=== PATIENT | female | born 1970 | race Caucasian/White ===

== ENCOUNTER 2017-01-10 10:39 | Emergency (ER) | payer OTHER ==
[2017-01-10 10:48] VITALS: BP 109/77; PULSE 88; RESP 16; TEMP 98.6; O2SAT 100
--- NOTE | 2017-01-10 10:56 | ED PDOC ---
Arrival/HPI - General Chief Complaint: Trauma Time Seen by Provider: 01/10/17 10:40 Historian: Patient - History of Present Illness Narrative History of Present Illness (Text): 01/10/17 10:54 46F w/no sig PMH evaluated for facial and R foot trauma. Pt reports that shower door fell on her Tuesday with laceration to bridge of nose and lateral aspect of R foot. Pt declined coming to ED at that time. Had some difficulty breathing, which has resolved with ice application to nose. Does not remember last tetanus shot. Denies N/V/F/C, SOB, CP, ALDANA, injury to other parts of her body or other complaints. PMH: Denies PSH: x 1 All: NKDA SH: Occasional ETOH use, denies tobacco or illicit drug use PMD: [place] Time/Duration: < week Symptom Onset: Sudden Symptom Course: Improving Quality: Aching Severity Level: Mild Context: Home Past Medical History - Provider Review Nursing Documentation Reviewed: Yes - Infectious Disease Hx of Infectious Diseases: None - Reproductive Menopause: No - Past Medical History Past Medical History: No Previous - HEENT Other/Comment: sinus - Psychiatric Hx Substance Use: No - Surgical History Hx Section: Yes - Anesthesia Hx Anesthesia: Yes Hx Anesthesia Reactions: No Hx Malignant Hyperthermia: No Family/Social History - Physician Review Nursing Documentation Reviewed: Yes Family/Social History: No Known Family HX Smoking Status: Never Smoked Hx Alcohol Use: Yes Frequency of alcohol use: Socially Hx Substance Use: No Allergies/Home Meds Allergies/Adverse Reactions: Allergies No Known Allergies Allergy (Verified 04/10/15 11:35) Home Medications: Home Meds Medication Instructions Recorded Confirmed No Known Home Med 04/10/15 01/10/17 Review of Systems - Physician Review All systems were reviewed & negative as marked: Yes - Review of Systems Constitutional: Normal Eyes: Normal. absent: Vision Changes ENT: Normal. absent: Sore Throat, Epistaxis Respiratory: Normal. absent: SOB Cardiovascular: Normal. absent: Chest Pain Gastrointestinal: Normal. absent: Abdominal Pain, Nausea, Vomiting Genitourinary Female: Normal. absent: Dysuria, Frequency Musculoskeletal: Normal. absent: Neck Pain Skin: Laceration (nasal bridge, lateral right foot). absent: Normal Neurological: Normal. absent: Headache Physical Exam Vital Signs Reviewed: Yes Vital Signs Temp Pulse Resp BP Pulse Ox 01/10/17 10:40 98.6 F 88 16 109/77 100 Temperature: Afebrile Blood Pressure: Normal Pulse: Regular Respiratory Rate: Normal Appearance: Positive for: Non-Toxic, Comfortable Pain Distress: None Mental Status: Positive for: Alert and Oriented X 3 - Systems Exam Head: Present: Normocephalic, Tenderness (nasal bridge (minimal)). No: Atraumatic (nasal laceration) Extroacular Muscles: Present: EOMI Conjunctiva: Present: Normal Mouth: Present: Moist Mucous Membranes Nose (External): Present: Laceration (nasal bridge). No: Atraumatic Neck: Present: Normal Range of Motion Respiratory/Chest: Present: Clear to Auscultation, Good Air Exchange. No: Respiratory Distress, Accessory Muscle Use Cardiovascular: Present: Regular Rate and Rhythm, Normal S1, S2. No: Murmurs Abdomen: Present: Normal Bowel Sounds. No: Tenderness, Distention, Peritoneal Signs Upper Extremity: Present: Normal Inspection. No: Cyanosis, Edema Lower Extremity: Present: Normal Inspection, Other. No: Edema Neurological: Present: GCS=15, CN II-XII Intact, Speech Normal Skin: Present: Warm, Dry, Normal Color, Laceration (healing laceration of nasal bridge, healed laceration of lateral aspect of Right posterior foot). No: Rashes Psychiatric: Present: Alert, Oriented x 3, Normal Insight, Normal Concentration Medical Decision Making ED Course and Treatment: 01/10/17 10:59 Pt seen/evaluated, tetanus shot order. Will order facial imaging for evaluation of possible nasal fracture. - RAD Interpretation Radiology Orders: 01/10/17 11:02 ORBITS/ FACIALS W/O CONTRAST [CT] Stat 01/10/17 11:15 FOOT RIGHT 3 VIEWS ROUTINE [RAD] Stat - Medication Orders Current Medication Orders: Discontinued Medications Tetanus/Reduced Diphtheria/Acell Pertussis (Boostrix Vaccine Inj) 0.5 ml IM .ONCE ONE Stop: 01/10/17 10:58 Last Admin: 01/10/17 11:03 Dose: 0.5 ml [facility] Immunization Data Document 01/10/17 11:03 [place] (Rec: 01/10/17 11:06 [place] [id number]) Immunization Data Vaccine Lot Number [id number] Vaccine Expiration Date 01/08/19 Site Given Left Deltoid Route Intramuscular Immunization Units ml Disposition/Present on Arrival - Present on Arrival Any Indicators Present on Arrival: No History of DVT/PE: No History of Uncontrolled Diabetes: No Urinary Catheter: No History of Decub. Ulcer: No History Surgical Site Infection Following: None - Disposition Have Diagnosis and Disposition been Completed?: Yes Diagnosis: Nasal laceration, Laceration of foot not toes Disposition: HOME/ ROUTINE Disposition Time: 13:01 Patient Plan: Discharge Condition: STABLE Discharge Instructions (ExitCare): Laceration (ED) Forms: [employer] ([place]ian)
[2017-01-10] MEDS ORDERED: TDAP Vaccine 0.5 mL Syr IM ONE (10:57)
--- NOTE | 2017-01-10 12:45 | CT ---
PROCEDURE: CT ORBITS WITHOUT CONTRAST. HISTORY: trauma COMPARISON: None available. TECHNIQUE: Axial CT images of the orbits were obtained. Coronal and sagittal reformats were generated. Radiation dose: Total exam DLP = 731 mGy-cm. This CT exam was performed using one or more of the following dose reduction techniques: Automated exposure control, adjustment of the mA and/or kV according to patient size, and/or use of iterative reconstruction technique. FINDINGS: RIGHT ORBIT: RIGHT BONY ORBIT: Normal. RIGHT INTRAORBITAL STRUCTURES: Globe: Normal. Extraocular muscles: Normal. Post septal space: Normal. Optic Nerve: Normal. Lacrimal Apparatus: Normal. RIGHT PRESEPTAL SOFT TISSUES: Normal. LEFT ORBIT: LEFT BONY ORBIT: Normal. LEFT INTRAORBITAL STRUCTURES: Globe: Normal. Extraocular muscles: Normal. Post septal space: Normal Optic Nerve: Normal. . Lacrimal Apparatus: Normal. LEFT PRESEPTAL SOFT TISSUES: Normal. OTHER: There is mucosal thickening throughout the paranasal sinuses. IMPRESSION: No acute findings
--- NOTE | 2017-01-10 12:51 | RAD ---
PROCEDURE: Right Foot Radiographs. HISTORY: hit by shower door medial aspect COMPARISON: None. FINDINGS: BONES: Normal. No fracture. JOINTS: Normal. SOFT TISSUES: Normal. OTHER FINDINGS: None. IMPRESSION: Normal right foot radiographs.
== END 2017-01-10 13:10 | disposition home or self-care (01) ==
LOC: ED 10:39
DX: S01.21XA Laceration without foreign body of nose, initial encounter (principal); S91.311A Laceration without foreign body, right foot, initial encounter; W20.8XXA Other cause of strike by thrown, projected or falling object, initial encounter; Z23 Encounter for immunization

== ENCOUNTER 2018-04-02 11:37 | Emergency (ER) | payer OTHER ==
[2018-04-02 11:45] VITALS: RESP 18
[2018-04-02] MEDS ORDERED: Albuterol 0.083% Inhal Sol (2.5 mg/3 mL) UD IH STA (12:21)
--- NOTE | 2018-04-02 12:54 | ED PDOC ---
Arrival/HPI - General Historian: Patient - History of Present Illness Narrative History of Present Illness (Text): 04/02/18 14:03 47-year-old female presents today with cough and nasal congestion that's been intermittent for the past 2 months. Patient states she completed a course of zithromax and has been having recurrent cough. pt denies chest pain or shortness of breath. pt c/o nasal congestion, occasional sore throat. pt denies fever/chills. no abdominal pain. pt states she has been on spiriva without improvement. pt denies headaches, dizziness, weakness. no other complaints. <Urvashi Thomas - Last Filed: 04/02/18 20:18> <Konstantin Best - Last Filed: 04/03/18 12:41> - General Chief Complaint: Cough, Cold, Congestion Time Seen by Provider: 04/02/18 11:45 Past Medical History - Provider Review Nursing Documentation Reviewed: Yes - Travel History Have you recently traveled outside [place] w/in the past 3 mons?: No - Infectious Disease Hx of Infectious Diseases: None - Past Medical History Past Medical History: No Previous - HEENT Other/Comment: sinus - Psychiatric Hx Substance Use: No - Surgical History Hx Section: Yes - Anesthesia Hx Anesthesia: Yes Hx Anesthesia Reactions: No Hx Malignant Hyperthermia: No <Urvashi Thomas - Last Filed: 04/02/18 20:18> Family/Social History - Physician Review Nursing Documentation Reviewed: Yes Family/Social History: Unknown Family HX Smoking Status: Never Smoked Hx Alcohol Use: Yes Hx Substance Use: No <Urvashi Thomas - Last Filed: 04/02/18 20:18> Allergies/Home Meds <Urvashi Thomas - Last Filed: 04/02/18 20:18> <Konstantin Best - Last Filed: 04/03/18 12:41> Allergies/Adverse Reactions: Allergies No Known Allergies Allergy (Verified 04/02/18 11:46) Review of Systems - Review of Systems Constitutional: absent: Fatigue, Fevers ENT: Sore Throat, Sinus Congestion Respiratory: Cough. absent: SOB Cardiovascular: absent: Chest Pain, Palpitations Gastrointestinal: absent: Abdominal Pain, Nausea, Vomiting Genitourinary Female: absent: Dysuria Musculoskeletal: absent: Arthralgias Skin: absent: Rash, Pruritis Neurological: absent: Headache, Dizziness Psychiatric: absent: Anxiety, Depression <Urvashi Thomas T - Last Filed: 04/02/18 20:18> Physical Exam Vital Signs Reviewed: Yes Vital Signs Temp Pulse Resp BP Pulse Ox 04/02/18 11:42 98.1 F 92 H 18 134/88 97 Temperature: Afebrile Blood Pressure: Normal Pulse: Regular Respiratory Rate: Normal Appearance: Positive for: Well-Appearing, Non-Toxic, Comfortable Pain Distress: None Mental Status: Positive for: Alert and Oriented X 3 - Systems Exam Head: Present: Atraumatic Conjunctiva: Present: Normal Ears: Present: Normal, NORMAL TM Mouth: Present: Moist Mucous Membranes, Normal Lips, Normal Tounge. No: Drooling, Trismus Pharnyx: Present: Normal. No: ERYTHEMA, EXUDATE, TONSILS ENLARGED Nose (External): Present: Atraumatic Nose (Internal): Present: Normal Inspection Neck: Present: Normal Range of Motion Respiratory/Chest: Present: Clear to Auscultation, Good Air Exchange. No: Respiratory Distress, Accessory Muscle Use, Wheezes, Retracting, Rhonchi, Tachypneic Cardiovascular: Present: Regular Rate and Rhythm, Normal S1, S2. No: Murmurs Neurological: Present: GCS=15 Skin: Present: Warm, Dry, Normal Color. No: Rashes Psychiatric: Present: Alert, Oriented x 3 <Urvashi Thomas T - Last Filed: 04/02/18 20:18> Vital Signs Temp Pulse Resp BP Pulse Ox 04/02/18 14:24 98.5 F 87 18 124/70 99 04/02/18 14:06 98.5 F 87 18 124/70 99 04/02/18 11:42 98.1 F 92 H 18 134/88 97 <Konstantin Best - Last Filed: 04/03/18 12:41> Medical Decision Making ED Course and Treatment: 04/02/18 14:06 pt is non toxic well appearing; no distress. with cold symptoms on and off x 2 months. cxr; wnl rapid flu negative. pt given albuterol neb; pt reassessment; pt feeling better after medications; vitals remain stable. prednisone added. will d/c home to f/u with pmd and licensed aircraft maintenance engineer as patient states every year she gets cold symptoms with residual cough. Patient verbalizes understanding of discharge instructions and need for immediate followup. all aspects of this case were discussed the attending of record. impression; bronchitis Albuterol 2 puffs every 4-6 hours as needed for cough Use albuterol nebulizer 3 times daily as needed for cough FLonase; 2 sprays each nostril once daily. prednisone once daily x 4 days. Increase fluids Followup with primary care physician the next 2 days Follow up with the licensed aircraft maintenance engineer within the next 2 days. Return if symptoms worsen persist or if new symptoms develop - RAD Interpretation Radiology Orders: 04/02/18 12:21 CHEST TWO VIEWS (PA/LAT) [RAD] Stat - Medication Orders Current Medication Orders: Discontinued Medications Albuterol Sulfate (Albuterol 0.083% Inhal Josefina (2.5 Mg/3 Ml) Ud) 2.5 mg IH STAT STA Stop: 04/02/18 12:22 Last Admin: 04/02/18 12:39 Dose: 2.5 mg <Urvashi Thomas - Last Filed: 04/02/18 20:18> - RAD Interpretation Radiology Orders: 04/02/18 12:21 CHEST TWO VIEWS (PA/LAT) [RAD] Stat - Medication Orders Current Medication Orders: Discontinued Medications Albuterol Sulfate (Albuterol 0.083% Inhal Josefina (2.5 Mg/3 Ml) Ud) 2.5 mg IH STAT STA Stop: 04/02/18 12:22 Last Admin: 04/02/18 12:39 Dose: 2.5 mg Prednisone (Prednisone Tab) 40 mg PO STAT ONE Stop: 04/02/18 13:58 Last Admin: 04/02/18 14:19 Dose: 40 mg <Konstantin Best - Last Filed: 04/03/18 12:41> - PA / DESK CLERK / Resident Statement / has reviewed & agrees with the documentation as recorded. <Konstantin Best - Last Filed: 04/03/18 12:41> Disposition/Present on Arrival - Present on Arrival Any Indicators Present on Arrival: No History of DVT/PE: No History of Uncontrolled Diabetes: No Urinary Catheter: No History of Decub. Ulcer: No History Surgical Site Infection Following: None - Disposition Have Diagnosis and Disposition been Completed?: Yes Disposition Time: 13:20 Patient Plan: Discharge <Urvashi Thomas - Last Filed: 04/02/18 20:18> <Konstantin Best - Last Filed: 04/03/18 12:41> - Disposition Diagnosis: Bronchitis Disposition: HOME/ ROUTINE Condition: GOOD Discharge Instructions (ExitCare): Acute Bronchitis, Adult (DC) Additional Instructions: Albuterol 2 puffs every 4-6 hours as needed for cough Use albuterol nebulizer 3 times daily as needed for cough FLonase; 2 sprays each nostril once daily. prednisone once daily x 4 days. Increase fluids Followup with primary care physician the next 2 days Follow up with the licensed aircraft maintenance engineer within the next 2 days. Return if symptoms worsen persist or if new symptoms develop Prescriptions: RX: Albuterol 0.083% [Albuterol 0.083% Inhal Josefina (2.5 mg/3 ml) UD] 1 vial IH TID PRN #1 packet PRN Reason: Cough RX: Nebulizer [Compact Compressor Nebulizer] 1 dev XX PRN PRN #1 dev PRN Reason: Cough Fluticasone Nasal [Flonase] 2 spr NS DAILY #1 spr RX: predniSONE [predniSONE Tab] 2 tab PO DAILY #8 tab RX: Albuterol HFA [Ventolin HFA 90 mcg/actuation (8 g)] 2 puff IH [id number] PRN #1 inhaler PRN Reason: Cough Referrals: Supa Borges MD [Primary Care Provider] - Follow up with primary Faheem Watkins MD [Staff Provider] - Follow up with primary Forms: [employer] (Filipino), WORK NOTE
--- NOTE | 2018-04-02 13:38 | RAD ---
Date of service: 04/02/2018 HISTORY: cough COMPARISON: 04/29/2014 TECHNIQUE: Chest PA and lateral FINDINGS: LUNGS: No active pulmonary disease. PLEURA: No significant pleural effusion identified. No pneumothorax apparent. CARDIOVASCULAR: No aortic atherosclerotic calcification present. Normal cardiac size. No pulmonary vascular congestion. OSSEOUS STRUCTURES: No significant abnormalities. VISUALIZED UPPER ABDOMEN: Normal. OTHER FINDINGS: None. IMPRESSION: No active disease.
[2018-04-02 14:07] VITALS: BP 124/70; PULSE 87; TEMP 98.5; O2SAT 99
== END 2018-04-02 14:24 | disposition home or self-care (01) ==
LOC: ED 11:37
DX: J40 Bronchitis, not specified as acute or chronic (principal)

== ENCOUNTER 2018-05-12 16:15 | Outpatient (CLI) | payer OTHER | END 2018-05-12 16:16 | disposition home or self-care (01) | LOC: LAB 16:15 ==